=== PATIENT | female | born 1995 | race Caucasian/White ===

== ENCOUNTER 2017-05-22 21:49 | Emergency (ER) | payer OTHER, BC ==
[~2017-05-22] VITALS: Ht 160 cm; Wt 53.0 kg
[2017-05-22 21:51] VITALS: TEMP 37; Ht 160 cm; Wt 53.0 kg
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
--- NOTE | 2017-05-22 22:39 | DIAGNOSTIC IMAGING REPORT ---
LUMBAR SPINE 5 VIEWS HISTORY: low back pain, fell snowboarding COMPARISON: None. FINDINGS: There is no fracture. No subluxation. Disc spaces are preserved. Bilateral L5 spondylolysis. IMPRESSION: No fracture or subluxation within the lumbar spine. Bilateral L5 spondylolysis. Electronically signed by: Aldo Willard M.D. 05/22/2017 10:38 PM Dictated Date/Time: 05/22/2017 10:33 PM
[2017-05-22 23:12] VITALS: BP 111/70; PULSE 76; O2SAT 96
== END 2017-05-22 23:12 | disposition home or self-care (01) ==
LOC: C.EDB 21:49 → C.EDA 23:12
DX: M54.5 Low back pain (principal); V43.52XA Car driver injured in collision with other type car in traffic accident, initial encounter